=== PATIENT | male | born 1940 | race Caucasian/White ===

== ENCOUNTER 2018-12-23 18:54 | Emergency (ER) | payer MEDICARE, MEDICAID ==
[~2018-12-23] VITALS: Ht 162.6 cm; Wt 84.0 kg
[2018-12-23] MEDS ORDERED: KETOROLAC 30MG/ML VIAL IV STA (19:47)
[2018-12-23] MEDS ORDERED: MORPHINE SULFATE 4 MG/ML CPJ (NOT FOR IM USE) IV STA (19:47)
[2018-12-23] MEDS ORDERED: SODIUM CHLORIDE 0.9% 1,000 ML IV ONE (19:47)
[2018-12-23] MEDS ORDERED: ONDANSETRON HCL 4MG/2ML INJ IV STA (19:47)
[2018-12-23] MEDS ORDERED: LORAZEPAM 1MG TABLET PO ONE (20:00)
[2018-12-23 21:06] LABS: BASOPHILS % 0.7 % (0.0-2.0); EOSINOPHILS % 2.2 % (0.0-5.0); HEMATOCRIT. 40.9 % (42.0-52.0); HEMOGLOBIN. 13.8 g/dL (14.0-18.0); LYMPHOCYTES % 28.4 % (20.0-50.0); MEAN CORPUSCULAR HEMOGLOBIN 31.3 pg (28.0-32.0); MEAN CORPUSCULAR VOLUME 92.4 fL (80.0-94.0); MEAN PLATELET VOLUME 8.3 fl (7.4-10.4); MONOCYTES % 12.5 % (2.0-8.0); NEUTROPHILS % 56.2 % (40.0-76.0); PLATELET 332 x1000/uL (130-400); RED BLOOD CELL COUNT 4.42 mill/uL (4.7-6.1); RED CELL DISTRIBUTION WIDTH 13.1 % (11.6-14.6)
[2018-12-23 21:09] LABS: CHLORIDE 103 mEq/L (98-107)
[2018-12-23 21:13] LABS: ETHANOL BLOOD < 10 mg/dL
[2018-12-23 21:49] LABS: CLARITY URINE CLEAR (CLEAR); COLOR URINE YELLOW (YELLOW); KETONES URINE NEGATIVE (NEGATIVE); LEUKOCYTE ESTERASE URINE NEGATIVE (NEGATIVE); NITRITE URINE NEGATIVE (NEGATIVE); OCCULT BLOOD URINE NEGATIVE (NEGATIVE); PH URINE 6.5 (4.5-8.0); PROTEIN URINE NEGATIVE (NEGATIVE); SPECIFIC GRAVITY URINE 1.013 (1.005-1.030); UROBILINOGEN URINE 0.2 E.U./dL (0.2-1.0)
[2018-12-23 21:59] LABS: *BARBITURATES SCREEN URINE NEGATIVE (NEGATIVE)
[2018-12-23 22:00] LABS: *BENZODIAZEPINES SCREEN URINE NEGATIVE (NEGATIVE); *COCAINE SCREEN URINE NEGATIVE (NEGATIVE); CANNABINOID URINE SCREEN NEGATIVE (NEGATIVE); METHADONE URINE SCREEN NEGATIVE (NEGATIVE); OPIATES URINE SCREEN NEGATIVE (NEGATIVE); PHENCYCLIDINE URINE SCREEN NEGATIVE (NEGATIVE)
[2018-12-23 22:01] LABS: *AMPHETAMINES SCREEN URINE NEGATIVE (NEGATIVE)
[2018-12-24 00:02] VITALS: BP 118/41
== END 2018-12-24 00:23 | disposition home or self-care (01) ==
LOC: EDBD → ER 18:54
DX: M54.16 Radiculopathy, lumbar region (principal); M54.30 Sciatica, unspecified side; Z98.890 Other specified postprocedural states
CPT/HCPCS: 36415; 71045; 74176; 80053; 80305; 80320; 81003; 83690; 83880; 84484; 85025; 93005; 96374; 96375; 99284; J1885; J2270; J2405; J7030; G0480

== ENCOUNTER 2018-12-28 08:09 | Emergency (ER) | payer MEDICARE, MEDICAID ==
[~2018-12-28] VITALS: Ht 177.8 cm; Wt 77.0 kg
[2018-12-28 08:56] LABS: EOSINOPHILS % 1.5 % (0.0-5.0); HEMATOCRIT. 45.7 % (42.0-52.0); HEMOGLOBIN. 15.5 g/dL (14.0-18.0); LYMPHOCYTES % 45.6 % (20.0-50.0); MEAN CORPUSCULAR HEMOGLOBIN 31.2 pg (28.0-32.0); MEAN CORPUSCULAR VOLUME 91.7 fL (80.0-94.0); MONOCYTES % 10.3 % (2.0-8.0); NEUTROPHILS % 41.6 % (40.0-76.0); PLATELET 404 x1000/uL (130-400); RED BLOOD CELL COUNT 4.98 mill/uL (4.7-6.1); RED CELL DISTRIBUTION WIDTH 13.5 % (11.6-14.6)
[2018-12-28 08:59] LABS: CHLORIDE 100 mEq/L (98-107)
[2018-12-28 11:05] VITALS: BP 134/71
[2018-12-29] MEDS ORDERED: SULI200T4 MT (03:14)
[2018-12-29] MEDS ORDERED: IBUP-2029 MT (03:14)
[2018-12-29] MEDS ORDERED: METO-539 PO (03:14)
[2018-12-29] MEDS ORDERED: OMEP20CA5 MT (03:14)
[2018-12-29] MEDS ORDERED: DIAZ2TAB3 PO (03:14)
[2018-12-29] MEDS ORDERED: OLME1TAB42 MT (03:14)
[2018-12-29] MEDS ORDERED: HYDR-4086 PO (03:14)
== END 2018-12-28 11:06 | disposition home or self-care (01) ==
LOC: ER 08:09
DX: R06.00 Dyspnea, unspecified (principal); R07.89 Other chest pain; I10 Essential (primary) hypertension
CPT/HCPCS: 36415; 71045; 83880; 84484; 93005; 99284

== ENCOUNTER 2018-12-28 11:39 | Inpatient (IN) | payer MEDICARE, MEDICAID ==
[~2018-12-28] VITALS: Ht 167.6 cm; Wt 83.9 kg
[2018-12-28] MEDS ORDERED: LORAZEPAM 0.5MG TABLET PO ONE (12:15)
[2018-12-28 12:45] LABS: BASOPHILS % 0.9 % (0.0-2.0); EOSINOPHILS % 0.2 % (0.0-5.0); HEMATOCRIT. 45.2 % (42.0-52.0); HEMOGLOBIN. 15.5 g/dL (14.0-18.0); LYMPHOCYTES % 32.6 % (20.0-50.0); MEAN CORPUSCULAR HEMOGLOBIN 31.4 pg (28.0-32.0); MEAN CORPUSCULAR VOLUME 91.5 fL (80.0-94.0); MEAN PLATELET VOLUME 8.1 fl (7.4-10.4); MONOCYTES % 9.9 % (2.0-8.0); NEUTROPHILS % 56.4 % (40.0-76.0); PLATELET 413 x1000/uL (130-400); RED BLOOD CELL COUNT 4.94 mill/uL (4.7-6.1); RED CELL DISTRIBUTION WIDTH 13.5 % (11.6-14.6)
[2018-12-28] MEDS ORDERED: IPRATROPIUM BROMIDE (0.02%) 0.5MG/2.5ML NEB HHN STA (12:53)
[2018-12-28] MEDS ORDERED: ALBUTEROL (0.083%) 2.5MG/3ML NEB HHN STA (12:53)
[2018-12-28 12:56] LABS: CHLORIDE 103 mEq/L (98-107)
[2018-12-28 13:07] LABS: ETHANOL BLOOD < 10 mg/dL
[2018-12-28] MEDS ORDERED: LORAZEPAM 2MG/ML CPJ IV ONE (13:30)
[2018-12-28 13:50] LABS: *AMPHETAMINES SCREEN URINE NEGATIVE (NEGATIVE)
[2018-12-28 13:51] LABS: *BARBITURATES SCREEN URINE NEGATIVE (NEGATIVE); *BENZODIAZEPINES SCREEN URINE NEGATIVE (NEGATIVE)
[2018-12-28 13:52] LABS: *COCAINE SCREEN URINE NEGATIVE (NEGATIVE); CANNABINOID URINE SCREEN NEGATIVE (NEGATIVE); METHADONE URINE SCREEN NEGATIVE (NEGATIVE); OPIATES URINE SCREEN PRESUMTIVE POSITIVE (NEGATIVE); PHENCYCLIDINE URINE SCREEN NEGATIVE (NEGATIVE)
[2018-12-28] MEDS ORDERED: CLONIDINE 0.1MG TABLET PO PRN (17:00)
[2018-12-28] MEDS ORDERED: ACETAMINOPHEN 325MG TABLET PO PRN (17:00)
[2018-12-28] MEDS ORDERED: MAGNESIUM/ALUMINUM HYDROXIDE/SIMETHICONE 30ML UDC PO PRN (17:00)
[2018-12-28] MEDS ORDERED: IPRATROPIUM/ALBUTEROL 0.5-3(2.5)MG/3ML NEB HHN PRN (17:00)
[2018-12-28] MEDS ORDERED: ONDANSETRON HCL 4MG/2ML INJ IV PRN (17:00)
[2018-12-28] MEDS ORDERED: DIPHENHYDRAMINE 50MG/ML VIAL IV PRN (17:00)
[2018-12-28] MEDS ORDERED: LORAZEPAM 2MG/ML CPJ IV PRN (17:00)
[2018-12-28] MEDS ORDERED: NA PHOS,M-B/NA PHOS,DI-BA ENEMA 118ML PR PRN (17:00)
[2018-12-28] MEDS ORDERED: GUAIFENESIN 200MG/10ML SUGAR FREE UDC PO PRN (17:00)
[2018-12-28] MEDS ORDERED: DOCUSATE SODIUM 100MG CAPSULE PO PRN (17:00)
[2018-12-28] MEDS ORDERED: ENOXAPARIN 40MG/0.4ML SYR SUBCUT SCH (18:00)
[2018-12-28 20:00] VITALS: BP 122/74
[2018-12-28] MEDS: IPRATROPIUM/ALBUTEROL 0.5-3(2.5)MG/3ML NEB HHN SCH (21:37)
[2018-12-28] MEDS: ENOXAPARIN 40MG/0.4ML SYR SUBCUT SCH (22:04)
[2018-12-28] MEDS: SODIUM CHLORIDE 0.9% INJ 3ML FLUSH IVF SCH (22:05)
[2018-12-29] VITALS: BP 134/81
[2018-12-29 00:29] LABS: CREATINE KINASE 618 IU/L (39-308)
[2018-12-29 00:31] LABS: CREATINE KINASE MB FRACTION 5.5 ng/mL (0.5-3.6)
[2018-12-29] MEDS: IPRATROPIUM/ALBUTEROL 0.5-3(2.5)MG/3ML NEB HHN SCH ×6 (00:47→20:11)
[2018-12-29] MEDS ORDERED: HYDR-4086 PO (03:14)
[2018-12-29] MEDS ORDERED: OLME1TAB42 MT (03:14)
[2018-12-29] MEDS ORDERED: SULI200T4 MT (03:14)
[2018-12-29] MEDS ORDERED: OMEP20CA5 MT (03:14)
[2018-12-29] MEDS ORDERED: METO-539 PO (03:14)
[2018-12-29] MEDS ORDERED: DIAZ2TAB3 PO (03:14)
[2018-12-29] MEDS ORDERED: IBUP-2029 MT (03:14)
[2018-12-29 04:00] VITALS: BP 137/76
[2018-12-29] MEDS: SODIUM CHLORIDE 0.9% INJ 3ML FLUSH IVF SCH ×3 (05:23→21:00)
[2018-12-29] MEDS: MORPHINE SULFATE 2 MG/ML CPJ (NOT FOR IM USE) IV PRN ×3 (05:24→22:27)
[2018-12-29 07:17] LABS: CHLORIDE 104 mEq/L (98-107)
[2018-12-29 07:19] LABS: HEMATOCRIT. 41.3 % (42.0-52.0); HEMOGLOBIN. 14.2 g/dL (14.0-18.0); MEAN CORPUSCULAR HEMOGLOBIN 31.4 pg (28.0-32.0); MEAN CORPUSCULAR VOLUME 91.2 fL (80.0-94.0); MEAN PLATELET VOLUME 8.5 fl (7.4-10.4); PLATELET 381 x1000/uL (130-400); RED BLOOD CELL COUNT 4.53 mill/uL (4.7-6.1); RED CELL DISTRIBUTION WIDTH 13.5 % (11.6-14.6)
[2018-12-29 07:26] LABS: CREATINE KINASE 712 IU/L (39-308); T4 FREE 1.37 ng/dL (0.76-1.46)
[2018-12-29 07:27] LABS: CREATINE KINASE MB FRACTION 5.3 ng/mL (0.5-3.6)
[2018-12-29 08:00] VITALS: BP 134/72
[2018-12-29] MEDS ORDERED: INFLUENZA VIRUS VACCINE(AFLURIA) 0.5ML SYR IM ONE (10:00)
[2018-12-29 12:00] VITALS: BP 136/72
[2018-12-29] MEDS ORDERED: POTASSIUM CHLORIDE 20MEQ TABLET SR PO NR (12:00)
[2018-12-29 13:08] LABS: PLATELET ESTIMATE NORMAL
[2018-12-29 16:00] VITALS: BP 126/72
[2018-12-29 20:00] VITALS: BP 127/70
[2018-12-29] MEDS: ENOXAPARIN 40MG/0.4ML SYR SUBCUT SCH (20:59)
[2018-12-29] MEDS: FLUTICASONE PROPIONATE 50MCG/SPRAY BOTTLE BOTHNSTRLS SCH (21:00)
[2018-12-29] MEDS: GUAIFENESIN 600MG ER TABLET PO SCH (21:00)
[2018-12-30] VITALS: BP 130/68
[2018-12-30] MEDS: IPRATROPIUM/ALBUTEROL 0.5-3(2.5)MG/3ML NEB HHN SCH ×4 (02:14→21:31)
[2018-12-30] MEDS: MORPHINE SULFATE 2 MG/ML CPJ (NOT FOR IM USE) IV PRN ×2 (03:28→10:52)
[2018-12-30 04:00] VITALS: BP 136/78
[2018-12-30] MEDS: SODIUM CHLORIDE 0.9% INJ 3ML FLUSH IVF SCH ×3 (06:05→22:33)
[2018-12-30 08:00] VITALS: BP 133/86
[2018-12-30] MEDS: GUAIFENESIN 600MG ER TABLET PO SCH ×2 (10:49→22:26)
[2018-12-30] MEDS: FLUTICASONE PROPIONATE 50MCG/SPRAY BOTTLE BOTHNSTRLS SCH ×2 (10:50→22:26)
[2018-12-30 12:00] VITALS: BP 164/85
[2018-12-30 16:00] VITALS: BP 148/76
[2018-12-30] MEDS ORDERED: DILTIAZEM HCL 5MG/ML 5ML VIAL IV ONE (18:15)
[2018-12-30 20:00] VITALS: BP 128/71
[2018-12-30] MEDS: ENOXAPARIN 40MG/0.4ML SYR SUBCUT SCH (22:26)
[2018-12-30] MEDS: HYDROCODONE/ACETAMINOPHEN 5/325MG TABLET PO PRN (22:33)
[2018-12-31] VITALS: BP 130/60
[2018-12-31] MEDS: IPRATROPIUM/ALBUTEROL 0.5-3(2.5)MG/3ML NEB HHN SCH ×3 (00:33→13:58)
[2018-12-31 04:00] VITALS: BP 111/69
[2018-12-31] MEDS: SODIUM CHLORIDE 0.9% INJ 3ML FLUSH IVF SCH ×2 (06:25→14:00)
[2018-12-31 08:00] VITALS: BP 129/77
[2018-12-31] MEDS: GUAIFENESIN 600MG ER TABLET PO SCH (09:01)
[2018-12-31] MEDS: FLUTICASONE PROPIONATE 50MCG/SPRAY BOTTLE BOTHNSTRLS SCH (09:01)
[2018-12-31] MEDS: HYDROCODONE/ACETAMINOPHEN 5/325MG TABLET PO PRN (09:24)
[2018-12-31 12:00] VITALS: BP 124/75
[2018-12-31 15:04] VITALS: BP 132/67
== END 2018-12-31 15:55 | disposition home or self-care (01) | DRG 189 ==
LOC: ER 11:39 → 8WST 15:14 → EDBEDREQ 15:24 → EDBEDREQTM 15:24 → ENRESERV 15:42
PROVIDERS: ADMIT Internal Medicine; ATTEND Internal Medicine
DX: J96.00 Acute respiratory failure, unspecified whether with hypoxia or hypercapnia (principal); E87.6 Hypokalemia; I10 Essential (primary) hypertension; F41.9 Anxiety disorder, unspecified; M54.40 Lumbago with sciatica, unspecified side; Z96.652 Presence of left artificial knee joint
CPT/HCPCS: 36415; 71045; 72148; 78582; 80305; 80307; 80320; 80329; 82550; 82553; 83880; 84439; 84443; 84484; 85379; 87804; 90686; 93005; 94640; 97162; 99285; A9558; J1650; J2060; J2270; J7611; J7620; G0480